=== PATIENT | female | born 1955 | race Caucasian/White ===

== ENCOUNTER 2019-11-11 09:36 | Day surgery (SDC) | payer BC ==
[2019-11-08 09:14] VITALS: BMI 26.5
[2019-11-11 09:49] VITALS: TEMP 98.2
[2019-11-11 12:43] VITALS: BP 131/87; PULSE 71
== END 2019-11-11 12:30 | disposition home or self-care (01) ==
LOC: FASU-ENDO 09:36
PROVIDERS: ATTEND Internal Medicine Gastroenterology
PROC: 0DJD8ZZ Inspection of Lower Intestinal Tract, Via Natural or Artificial Opening Endoscopic (ICD-10-PCS; principal; 2019-11-11 11:23)
DX: Z86.010 Personal history of colon polyps (principal)